=== PATIENT | female | born 1950 | race Caucasian/White ===

== ENCOUNTER 2022-07-30 14:00 | Outpatient (RCR) | payer MEDICARE, BC, SELFPAY | END 2022-11-27 23:59 | disposition home or self-care (01) | PROVIDERS: PCP Physician Assistant Medical; Visit Provider Family Medicine | DX: M54.32 Sciatica, left side (principal); M79.18 Myalgia, other site; M54.50 Low back pain, unspecified; R53.1 Weakness; M79.662 Pain in left lower leg; Z51.89 Encounter for other specified aftercare | CPT/HCPCS: 97110; 97140; 97162 ==